=== PATIENT | female | born 1935 | race Caucasian/White ===

== ENCOUNTER 2017-08-22 09:32 | Outpatient (CLI) | END 2017-08-22 09:33 | disposition short-term general hospital (02) | LOC: AMBL 09:32 | PROVIDERS: ATTEND Internal Medicine | DX: S99.911A Unspecified injury of right ankle, initial encounter (principal); R00.1 Bradycardia, unspecified; W01.0XXA Fall on same level from slipping, tripping and stumbling without subsequent striking against object, initial encounter ==

== ENCOUNTER 2017-09-07 12:00 | Outpatient (CLI) | END 2017-09-07 12:01 | disposition home or self-care (01) | LOC: NONPT 12:00 | PROVIDERS: ATTEND Family Medicine | DX: S82.91XA Unspecified fracture of right lower leg, initial encounter for closed fracture (principal); F03.90 Unspecified dementia, unspecified severity, without behavioral disturbance, psychotic disturbance, mood disturbance, and anxiety | CPT/HCPCS: 80048; 85025 ==

== ENCOUNTER 2018-05-11 19:28 | Observation (INO) ==
[2018-05-11 19:41] VITALS: BMI 24.7
[2018-05-11] MEDS ORDERED: ZOFRAN 4 MG/2 ML IVP STA (19:48)
[2018-05-11] MEDS ORDERED: LACTATED RINGERS 1,000 ML IV STA (19:48)
--- NOTE | 2018-05-11 20:42 | DI ---
EXAM: Single view chest. HISTORY: Fever and weakness. COMPARISON: None. FINDINGS: A single portable AP view of the chest. There hemidiaphragm is elevated. LUNGS: The lung volumes are normal. There is no lobar consolidation or effusion. The pulmonary inte rstitium is normal. There are no suspicious nodules. MEDIASTINUM: The heart is enlarged. The pulmonary vasculature is normal. The aorta is tortuous an d calcified. OSSEOUS STRUCTURES: The osseous structures show mild degenerative changes consistent with age. The so ft tissues are unremarkable. IMPRESSION: 1. No acute pulmonary disease. 2. Elevated right hemidiaphragm. Recommend comparison with prior studies. 3. Cardiomegaly.
--- NOTE | 2018-05-11 22:15 | ED.PDOC ---
General ED Provider: Dr. MICHAEL JIMENEZ Chief Complaint: Fever Stated Complaint: Patient is brought by family with fever today and Diarrhea for one week. went to PCP was told to push fluids. Time Seen by Physician: 19:45 Mode of Arrival: Ambulance Information Source: Patient, Family, EMT Primary Care Provider: FABIAN BURKETT Nursing and Triage Documentation Reviewed and Agree: Yes Does patient meet sepsis criteria?: No System Inflammatory Response Syndrome: Not Applicable Sepsis Protocol: For patient's 13 years and over: Temp is 96.8 and below OR 101 and greater Pulse >90 BPM Resp >20/minute Acutely Altered Mental Status Are patient's symptoms suggestive of a new infection, such as: -Pneumonia -Skin, Soft Tissue -Endocarditis -UTI -Bone, Joint Infection -Implantable Device -Acute Abdominal Infection -Wound Infection -Meningitis -Blood Stream Catheter Infection -Unknown GI Complaint Exam - Vomiting/Diarrhea Complaint/Exam Onset/Duration: 1 week Symptoms Are: Still present Episodes of Vomiting over last 24 Hours: 1 (just prior to arrival ) Episodes of Diarrhea Over Last 24 Hours: 5 Initial Severity: Moderate Current Severity: Moderate Character of Vomiting: Reports: Non-bilious Character of Diarrhea: Reports: Watery Aggravating: Reports: Food, Liquids Alleviating: Reports: None Associated Signs and Symptoms: Reports: Dizziness, Light-headedness, Abdominal pain Non-GI Risk Factors: Reports: None Surgical Obstruction Risk Factors: Reports: None Related Surgical History: Reports: None Abdominal Findings: Present: Other (mild Tendeness to palpation.) Differential Diagnoses: Gastritis, Viral Gastroenteritis, Bacterial Gastroenteritis Review of Systems - Review Of Systems Constitutional: Reports: Fever (at home T max 100 ) Eyes: Reports: No symptoms Respiratory: Reports: No symptoms Cardiac: Reports: No symptoms GI: Reports: Abdominal pain (mild ), Nausea, Vomiting (x1 ) : Reports: No symptoms Musculoskeletal: Reports: No symptoms Skin: Reports: No symptoms Neurological: Reports: Anxiety Endocrine: Reports: No symptoms All Other Systems: Reviewed and Negative Past Medical History - Past Medical History Previously Healthy: Yes Endocrine: Reports: None Cardiovascular: Reports: None Respiratory: Reports: None Hematological: Reports: None Gastrointestinal: Reports: None Genitourinary: Reports: None Neuro/Psych: Reports: Dementia Musculoskeletal: Reports: Arthritis, Back Pain Cancer: Reports: None Last Menstrual Period: none Other Pertinent Past Medical History: restless legs - Surgical History General Surgical History: Reports: None - Family History Family History: Reports: Unknown - Social History Smoking Status: Never smoker Hx Substance Use: No Alcohol Screening: None - Immunizations Tetanus Shot up to Date: Yes Physical Exam - Physical Exam Appearance: Ill-appearing Ill-appearing: Moderate Pain Distress: Mild Eyes: TREVOR, EOMI, Conjunctiva clear ENT: Dry mucosa Neck: Supple Respiratory: Airway patent, Breath sounds clear, Breath sounds equal, Respirations nonlabored Cardiovascular: RRR, Pulses normal, No rub, No murmur GI/: Soft, Nontender, No masses, Bowel sounds normal, No Organomegaly Musculoskeletal: Normal strength, ROM intact, No edema, No calf tenderness Skin: Warm, Dry, Normal color Neurological: Sensation intact, Motor intact, Cranial nerves intact, Alert, Oriented Psychiatric: Anxious Interpretation - Radiology Interpretation Radiology Interpretation By: Radiologist Radiology Results: Negative Exam Interpreted: CXR Radiology Interpretation By: Radiologist - [employer] Rate: Normal Rhythm: Sinus Critical Care Note - Critical Care Note Total Time (mins): 35 Course - Course Hematology/Chemistry: 05/12/18 05:00 05/12/18 10:55 Orders, Labs, Meds: Lab Review 05/11/18 05/11/18 05/11/18 19:40 19:40 19:40 WBC 5.37 RBC 4.60 Hgb 12.9 Hct 39.0 MCV 84.8 MCH 28.0 MCHC 33.1 RDW Coeff of [place] 13.0 Plt Count 189 Immature Gran % (Auto) 0.6 Neut % (Auto) 77.8 Lymph % (Auto) 15.1 [place] % (Auto) 5.0 Eos % (Auto) 1.1 Baso % (Auto) 0.4 Immature Gran # (Auto) 0.0 Neut # (Auto) 4.2 Lymph # (Auto) 0.8 [place] # (Auto) 0.3 L Eos # (Auto) 0.1 Baso # (Auto) 0.0 Sodium 136.6 L Potassium 3.96 Chloride 101.7 Carbon Dioxide 27.8 Anion Gap 11.06 BUN 29.1 H Creatinine 1.21 Estimated GFR (MDRD) 43.00 BUN/Creatinine Ratio 24.04 Glucose 113.0 H Lactic Acid Calcium 8.85 Total Bilirubin 0.48 AST 34.5 ALT 17.5 Alkaline Phosphatase 91.1 Total Protein 7.23 Albumin 4.14 Globulin 3.09 Albumin/Globulin Ratio 1.33 Procalcitonin 0.08 Urine Color Urine Clarity Urine pH Ur Specific [place] Urine Protein Urine Glucose (UA) Urine Ketones Urine Blood Urine Nitrite Urine Bilirubin Urine Urobilinogen Ur Leukocyte Esterase Urine Microscopic RBC Urine Microscopic WBC Ur Squamous Epith Cells Urine Bacteria Hyaline Casts Urine Mucus Influ A Molecular Assay Influ B Molecular Assay 05/11/18 05/11/18 05/11/18 19:40 19:40 21:18 WBC RBC Hgb Hct MCV MCH MCHC RDW Coeff of [place] Plt Count Immature Gran % (Auto) Neut % (Auto) Lymph % (Auto) [place] % (Auto) Eos % (Auto) Baso % (Auto) Immature Gran # (Auto) Neut # (Auto) Lymph # (Auto) [place] # (Auto) Eos # (Auto) Baso # (Auto) Sodium Potassium Chloride Carbon Dioxide Anion Gap BUN Creatinine Estimated GFR (MDRD) BUN/Creatinine Ratio Glucose Lactic Acid 1.06 Calcium Total Bilirubin AST ALT Alkaline Phosphatase Total Protein Albumin Globulin Albumin/Globulin Ratio Procalcitonin Urine Color Yellow Urine Clarity Clear Urine pH 6.5 Ur Specific [place] 1.020 Urine Protein Negative Urine Glucose (UA) Negative Urine Ketones Negative Urine Blood Trace-intact Urine Nitrite Negative Urine Bilirubin Negative Urine Urobilinogen 0.2 Ur Leukocyte Esterase 1+ Urine Microscopic RBC 2-5 Urine Microscopic WBC 10-20 Ur Squamous Epith Cells 2-5 Urine Bacteria 1+ Hyaline Casts 2-5 Urine Mucus Trace Influ A Molecular Assay Negative by naat Influ B Molecular Assay Negative by naat Orders Category Date Time Status ED APPLY O2 .ONCE EMERGENCY 05/11/18 19:29 Active ED CIRCULATION ASSISTANT APPLIED .ONCE EMERGENCY 05/11/18 19:29 Active ED IV/MEDIPORT/POWERPORT .ONCE EMERGENCY 05/11/18 19:29 Active ED VITAL SIGNS Q1HR EMERGENCY 05/11/18 19:29 Completed BLOOD CULTURE (ED ONLY) Stat LAB 05/11/18 19:40 Results CBC W/ AUTO DIFF Stat LAB 05/11/18 19:40 Completed COMPREHENSIVE METABOLIC PANEL Stat LAB 05/11/18 19:40 Completed FLU A/B MOLECULAR Stat LAB 05/11/18 19:40 Completed LACTIC ACID Stat LAB 05/11/18 19:40 Completed PROCALCITONIN Stat LAB 05/11/18 19:40 Completed URINALYSIS C & S IF INDICATED Stat LAB 05/11/18 21:18 Completed URINE CULTURE Stat LAB 05/11/18 21:18 Results 0.9 % Sodium Chloride [Saline Flush] MEDS 05/11/18 19:29 Discontinued 1 syr IVF PRN PRN Ondansetron HCl/Pf [Zofran 4 mg/2 ml] MEDS 05/11/18 19:48 Discontinued 4 mg IVP ONCE STA Ringers Lactated Solution [Lactated Ringers] 1,000 ml MEDS 05/11/18 19:48 Discontinued IV BOLUS CHEST, 1V AP ONLY Stat RADS 05/11/18 19:29 Completed Medications Discontinued Medications Generic Name Dose Route Start Last Admin Trade Name Freq PRN Reason Stop Dose Admin Atorvastatin Calcium 10 mg 05/12/18 21:00 Lipitor PO BEDTIME MINNA Baclofen 10 mg 05/12/18 09:00 05/12/18 14:39 Baclofen PO 10 mg TID MINNA Administration Calcium/Vitamin D 1 each 05/12/18 09:00 05/12/18 10:12 Calcium 500 + Vit D 200 Mg Tablet PO Not Given BID MINNA Enoxaparin Sodium 40 mg 05/11/18 23:45 05/12/18 02:25 Lovenox SUBCUT 40 mg DAILY MINNA Administration Enoxaparin Sodium 40 mg 05/12/18 21:00 Lovenox SUBCUT BEDTIME MINNA Gabapentin 300 mg 05/12/18 09:00 05/12/18 14:43 Neurontin PO Not Given TID MINNA Lactated Ringer's 1,000 mls @ 1,000 mls/hr 05/11/18 19:48 05/11/18 19:55 Lactated Ringers IV 05/11/18 20:47 1,000 mls/hr BOLUS STA Administration Sodium Chloride 1,000 mls @ 100 mls/hr 05/11/18 22:30 05/12/18 10:12 Sodium Chloride IV 100 mls/hr .Q10H MINNA Administration Calcium Gluconate 1,000 mg/ 110 mls @ 50 mls/hr 05/12/18 12:03 05/12/18 12:33 Sodium Chloride IV 05/12/18 14:14 50 mls/hr ONCE STA Administration Non-Formulary Medication 1 each 05/12/18 21:00 Memantine Hcl/Donepezil Hcl [Namzaric 28 Mg-10 Mg Capsule] PO BEDTIME MINNA Non-Formulary Medication 240 mg 05/12/18 21:00 Verapamil Hcl [Verapamil Sr] PO BEDTIME MINNA Ondansetron HCl 4 mg 05/11/18 19:48 05/11/18 19:54 Zofran 4 Mg/2 Ml IVP 05/11/18 19:49 4 mg ONCE STA Administration Ondansetron HCl 4 mg 05/11/18 22:16 Zofran 4 Mg/2 Ml IVP Q6H PRN Nausea / Vomiting Oxycodone/Acetaminophen tab 05/11/18 22:20 Percocet 10-325 PO PRN PRN severe pain Oxycodone/Acetaminophen 1 tab 05/12/18 11:21 Percocet 10-325 PO Q6H PRN severe pain Ropinirole HCl 0.25 mg 05/12/18 09:00 05/12/18 14:43 Requip PO 0.25 mg TID MINNA Administration Sodium Chloride 1 syr 05/11/18 19:29 Saline Flush IVF PRN PRN To flush IV Trazodone HCl 50 mg 05/12/18 21:00 Desyrel PO BEDTIME MINNA Vancomycin HCl 125 mg 05/12/18 12:00 05/12/18 18:01 Vancocin PO Not Given Q6HR [facility] Vital Signs: Temp Pulse Resp BP Pulse Ox 05/11/18 21:34 98.2 F 80 18 128/82 96 05/11/18 19:29 97.6 F 88 20 133/63 97 Departure - Departure Time of Disposition: 22:15 Disposition: PLACED OBSERVATION Discharge Problem: Gastroenteritis, Dehydration Condition: Stable Pt referred to PMD for follow-up: No IPMP verified?: No Allergies/Adverse Reactions: Allergies celecoxib [From Celebrex] Allergy (Unverified 08/18/17 12:12) swelling ciprofloxacin [From Cipro] Allergy (Unverified 08/18/17 12:12) severe itching ciprofloxacin HCl [From Cipro] Allergy (Unverified 08/18/17 12:12) severe itching diclofenac Allergy (Unverified 08/18/17 12:12) Upset stomach pregabalin [From Lyrica] Allergy (Unverified 08/18/17 11:56) slurred speach rofecoxib [From Vioxx] Allergy (Unverified 08/18/17 12:12) high blood pressure rosuvastatin calcium [From Crestor] Allergy (Unverified 08/18/17 12:12) bad leg aches tizanidine Allergy (Unverified 08/18/17 12:12) tizanidine HCl [From Zanaflex] Allergy (Unverified 08/18/17 12:12) dry mouth Home Medications: Ambulatory Orders Atorvastatin Calcium 10 mg PO BEDTIME 08/18/17 Baclofen 10 mg PO TID 08/18/17 Oxycodone HCl/Acetaminophen [Percocet 10-325 mg Tablet] 1 each PO PRN PRN Ropinirole HCl 0.25 mg PO TID 08/18/17 Verapamil HCl [Verapamil Sr] 240 mg PO BEDTIME 08/18/17 Memantine HCl/Donepezil HCl [Namzaric 28 mg-10 mg Capsule] 1 each PO BEDTIME 07/28 Trazodone HCl [Desyrel] 50 mg PO BEDTIME 05/11/18 Calcium Carbonate/Vitamin D3 [Calcium 500 + Vit D 200 mg Tablet] 1 each PO BID 30 Days #60 tablet 05/12/18 Gabapentin [Neurontin] 100 mg PO TID 05/12/18 Vancomycin HCl [Vancocin] 125 mg PO Q6HR 10 Days #40 capsule 05/12/18
[2018-05-11] MEDS ORDERED: ZOFRAN 4 MG/2 ML IVP PRN (22:16)
[2018-05-11] MEDS ORDERED: PERCOCET 10-325 PO PRN (22:20)
--- NOTE | 2018-05-11 23:03 | PCM ---
- Chief Complaint Chief Complaint: Dehydration - History of Present Illness History of Present Illness: 83 yo WF resident of [facility], here in [place] with Daughter Luci. PCP Dr. Chan. Patient lives with daughter, 13 years. Daughter moved in to care for mother. Pets at home include 6 dogs rescues and 9 mo great grand duaghter a few times weekly. daughter notes diarrhea x 1 week. using pepto bismol and using OTC anti-diarrheal pills. Went and saw Dr. Chan this past tuesday, 3 days ago and told her about it and they recommended to keep doing the same as everything checked fine. No blood work per daughter as they do blood work every other visit. Checked vitals, checked meds, sent home to continue. She was not that weak. As week progressed more weak. Trying to increase fluids, trying to increase intake. Daughter noted last night more weak. This day she was eating/drking. Got up peeled own apple, ate own food, using restroom on her own, walking with walker. 5pm today, emesis x1. Daughter felt her she felt hot, checked axillary temp 102.8. they thought she was dehydrated, made decision to bring her here. Flu shot given on tuesday through Dr. Chan. Tylenol given at home. Daughter brought her in for evaluation. Last [id number]. No other sick contacts. No blood in stool. today she has had 3x diarrhea. Yesterday 3x diarrhea. She ahs not been on any abx in past 90 days, no different foods. No abdominal pain. No cramping. NO changes in diet.No changes in urination, no freq, no hesitancy, no dysuria, no blood. Intermittent UTI, but nothing recently. UA today not overtly infectious. Flu negative in ER. Vitals stable. Dr. cMkinney in ER called me with ?dehydration. they got to ER about 7pm per daughter. History of RLS, history of HTN, history of chronic back pain, feeling weak and tired. Fluids by EMS. 1 L NS in ER. 2nd liter running now. negative lactate. SIRS negative. Appetite has been good. She has not had anythign for pain, she has not had any falls. We will check for cdiff, she has never had this that she knows. They report prominent odor to the stools. With >3 unformed stools,will check for cdiff. Patient was seen in ED room 3, imaging/labs ordered. Now having abd pain. NO pain with feeding, no pain post eating. - Review of Systems Constitutional: fever, chills, weakness. No: sweats, fatigue, loss of appetite , other Eyes: other (dry). No: blurred vision, double-vision, discharge, itching, pain , redness, photophobia Ears: No: pain, bleeding, drainage, ringing, hearing loss, other Nose: No: bleeding, congestion, discharge, other Throat: No: pain, swelling, voice change, other Mouth: other (dry eyes, dry mouth. ). No: bleeding, pain, swelling Respiratory: No: cough, shortness of air, wheeze, hemoptysis, pain with breathing, other Cardiovascular: No: chest pain, left arm pain, diaphoresis, PND, orthopnea, edema, palpitations, syncope, other Gastrointestinal: abdominal pain, nausea, diarrhea. No: vomiting, melena, hematemesis, hematochezia, dysphagia, constipation Genitourinary: No: dysuria, hematuria, frequency, incontinence, flank pain, vaginal discharge, abnormal bleeding, pelvic pain, other Neurological: headache (mild), weakness. No: other, dizziness, seizure, numbness, speech difficulty, problems with walking, tremor, fainting Musculoskeletal: pain (chronic). No: swelling in joints, other Skin: No: rash, pruritus, lacerations, wounds, bruising, other Immunology: No: hives, itching, frequent infections, difficulty healing, other Hematology: No: easy bruising, easy bleeding, swollen glands, other Endocrine: No: weight changes, cold intolerance, heat intolerance, excessive thirst, excessive hunger, polyuria, other Psychiatric: No: depression, anxiety, sleeplessness, hopelessness, suicidal, hallucinations, other Habits: No: tobacco use, substance use, alcohol use, other - Past Medical History Past Medical History: Chronic back pain, RLS, OA, dementia, fatigue (recently diarrhea). - Past Surgical History Past Surgical History: Cholecystectomy, appendectomy, Partial hysterectomy. Carpal tunnel x 2, surgery on thumb x 1. Eye surgery, cataract. - Allergies Allergies/Adverse Reactions: Allergies Allergy/AdvReac Type Severity Reaction Status Date / Time celecoxib [From Celebrex] Allergy Unverified 08/18/17 12:12 ciprofloxacin [From Cipro] Allergy Unverified 08/18/17 12:12 ciprofloxacin HCl Allergy Unverified 08/18/17 12:12 [From Cipro] diclofenac Allergy Unverified 08/18/17 12:12 pregabalin [From Lyrica] Allergy Unverified 08/18/17 11:56 rofecoxib [From Vioxx] Allergy Unverified 08/18/17 12:12 rosuvastatin calcium Allergy Unverified 08/18/17 12:12 [From Crestor] tizanidine Allergy Unverified 08/18/17 12:12 tizanidine HCl Allergy Unverified 08/18/17 12:12 [From Zanaflex] - Medications Medications: Medications Generic Name Dose Route Start Last Admin Trade Name Freq PRN Reason Stop Dose Admin Atorvastatin Calcium 10 mg 05/12/18 21:00 Lipitor PO BEDTIME MINNA Baclofen 10 mg 05/12/18 09:00 Baclofen PO TID [facility] Gabapentin 300 mg 05/12/18 09:00 Neurontin PO TID [facility] Sodium Chloride 1,000 mls @ 100 mls/hr 05/11/18 22:30 Sodium Chloride IV .Q10H [facility] Non-Formulary Medication 1 each 05/12/18 21:00 Memantine Hcl/Donepezil Hcl [Namzaric 28 Mg-10 Mg Capsule] PO BEDTIME [facility] Non-Formulary Medication 240 mg 05/12/18 21:00 Verapamil Hcl [Verapamil Sr] PO BEDTIME [facility] Ondansetron HCl 4 mg 05/11/18 22:16 Zofran 4 Mg/2 Ml IVP Q6H PRN Nausea / Vomiting Oxycodone/Acetaminophen tab 05/11/18 22:20 Percocet 10-325 PO PRN PRN severe pain Ropinirole HCl 0.25 mg 05/12/18 09:00 Requip PO TID [facility] Sodium Chloride 1 syr 05/11/18 19:29 Saline Flush IVF PRN PRN To flush IV Trazodone HCl 50 mg 05/12/18 21:00 Desyrel PO BEDTIME MINNA - Family History Past Family History: Daughter: Pseudotumor cerebri, OA. Psorias/arthritis Other family history negative per daughter. No cancers. - Social History Past Social History: . Lives with daughter. 14 years. No tobacco. Pets at home dogs. - Vital Signs Temperature: 98.2 F Pulse Rate: 80 Respiratory Rate: 18 Blood Pressure: 128/82 O2 Sat by Pulse Oximetry: 96 - Body Composition Height: 5 ft 2 in Weight: 135 lb Body Mass Index (BMI): 24.7 - Physical Examination HEENT: Constitutional: Appearance-Supine in hospital bed, talking in full sentences. No acute distress, abdominal pain reported. Consistent with stated age. Orientation- Oriented x 3, alert Build and Nutrition-[normal BMI] General- Patient is pleasant and cooperative with the interview and exam. Integumentary: General-No rashes, ulcers or lesions. Palpation- Normal skin moisture/turgor. Skin is warm to touch, appropriate. Capillary refill is normal bilateral Upper and lower extremity. Head/Neck: Head- normocephalic and atraumatic. Neck- without visible/palpable lumps or pulsations. Palpation- No bony tenderness about head/neck along frontal, occipital, temporal, parietal, mastoid, jawline, zygoma, orbit or any other location. NO temporal artery tenderness. No TMJ tenderness. Neck Supple. Thyroid-No thyromegaly, no nodules Eye: Bilaterally PERRLA, EOMI. No discharge. Upper and lower eyelids are normal. Sclera/conjunctiva normal without discharge. Cornea is normal and clear. Lens is normal. Eyeball appears normal. No ciliary flushing, no conjunctival injection. ENMT: Pinna- normal without tenderness or erythema. External auditory canal Left- normal without erythema or discharge, no excessive cerumen. External auditory canal Right-normal without erythema or discharge, no excessive cerumen. TM left- Higgins/pearly, normal light reflex and anatomy TM Right- Higgins/ pearly, normal light reflex and anatomy Hearing Assessment-normal to conversational speech. Nose and sinus- No sinus tenderness along frontal/ maxillary region. External appearance normal and midline. Nares- bilateral quiet airflow, no discharge. Nasal mucosa- No bleeding noted and no ulcerations observed. [place], moist. Turbinates non boggy. Lips- normal color, moist without cracks/lesions Oral Cavity/Palate- hard/soft palate intact without lesions, oral mucosa dry, lips cracked. Oropharynx- no pharyngeal erythema, Uvula midline. No post nasal drip. No exudate. Salivary glands- Non tender to palpation CHEST/LUNG: Inspection- symmetric chest wall no pectus deformity. Normal effort , no distress, no use of accessory muscles. Palpation- nontender sternum, ribline. No abnormal pulsations. Auscultation- Breath sounds normal throughout all lung lomas. Normal tracheal sounds, Normal bronchial sounds overlying sternum, Bronchovessicular sounds normal between scapulae posteriorly, Normal vessicular breath sounds heard throughout periphery. Lungs are clear today. Adventitious sounds- No wheezes, rales, rhonchi. CARDIOVASCULAR: Carotid artery- normal, no bruits or abnormal pulsations. Jugular vein- no pulsations. Palpation/Percussion- Normal PMI, no palpable thrill Auscultation- Regular rate and rhythm. No murmur noted in sitting, supine positions. Extremities- no digital clubbing, cyanosis, edema, increased warmth. ABDOMEN: Inspection- normal and no visible pulsations. Normal contour. Auscultation- Bowel sounds mildly hypoactive but present all quadrants. no abdominal bruits. Palpation/Percussion- soft, generalized tender, no rebound tenderness, no rigidity (guarding), no jar tenderness, no masses. No mcburney tenderness, no rovsing, no mcallister sign. Rectal: Deferred. Peripheral Vascular: Upper extremity Left- Normal temperature with pink nailbeds and no ulcerations. Upper extremity Right- Normal temperature with pink nailbeds and no ulcerations. Lower extremity- Normal temperature with pink nailbeds and no ulcerations. DP pulses 2+ bilaterally. Normal capillary refill. Edema- No edema. Musculoskeletal: Generalized-No generalized swelling or edema of extremities, no digital clubbing or cyanosis, neurovascularly intact all four extremities. Upper extremity- Symmetrical posture. No visible deformity. Normal sensation along medial and lateral upper extremity proximally and distally. NO tenderness overlying shoulder, lateral/medial epicondyle. [employer] 5/5 and strength 5/5 bilateral UE. Elbow palpated, no tenderness overlying olecranon. Normal supination, pronation to active/passive ROM and to resisted rotation. Bicep insertion/tricep insertion appear normal without obvious pathology. Rotator cuff evaluated and intact. Normal wrist ROM bilaterally. Normal hand movement, intrinsic muscles of hands normal. No tenderness to palpation of hands/wrists/ elbows. Lower extremity- Hip: Not tender to palpation, no pain, no swelling, edema or erythema of surrounding tissue, normal strength and tone. Normal appearing hip ROM bilaterally without pain. Knee: Knee ROM normal. No tenderness overlying trochanters, no tenderness about patella, quad tendon, patellar tendon. No tenderness at tibial tuberosity. Ankle: normal ROM not tender to palpation along medial/lateral malleolus. Spine/Ribs- No deformities, masses. tenderness T/Lspine. no known fractures, normal strength, Decreased ROM. Normal stability No tenderness along C/T/L spine. Normal appearing ROM about spine. Neurological: General- Moves all 4 extremities symmetrically. Symmetrical face and body posture. Cranial nerves- individually evaluated II-XII and intact. PERRLA, Normal EOMI, visual/special senses appear intact, Face is symmetrical and normal sensation/movement, normal tongue, normal strength/posture of neck musculature. Reflexes- intact with DTR 2+ patellar, Achilles, bicep, brachial, tricep. Ankle clonus normal with 2 beats. Strength- 5/5 bilateral UE and LE. Neuropsych: Oriented- Person, place, time. (AAOx3), Mood/affect- normal and congruent. Able to articulate well. Speech-Normal speech, normal rate, normal tone, normal use of language, volume and coherence. Thought content- normal with ability to perform basic computations and apply abstract thought/reason. Associations- intact, no SI/HI, no hallucinations, delusions, obsessions. Judgment/insight- Appropriate. Lymphatic: Head/Neck- normal size and non tender to palpation. Axillary- normal size and non tender to palpation. Femoral and Inguinal- normal size and non tender to palpation. - Lab/Tests/Diagnostic Imaging Lab/Tests/Diagnostic Imaging: Laboratory Last Values WBC 5.37 K/ul (4.6-10.2) 05/11/18 19:40 RBC 4.60 10^6/ul (4.20-5.40) 05/11/18 19:40 Hgb 12.9 g/dl (12.0-16.0) 05/11/18 19:40 Hct 39.0 % (37.0-47.0) 05/11/18 19:40 MCV 84.8 fl (81.0-99.0) 05/11/18 19:40 MCH 28.0 pg (27.0-31.0) 05/11/18 19:40 MCHC 33.1 (31.8-35.4) 05/11/18 19:40 RDW Coeff of [place] 13.0 % (11.6-14.8) 05/11/18 19:40 Plt Count 189 10^3/uL (140-440) 05/11/18 19:40 Immature Gran % (Auto) 0.6 % (0.0-5.0) 05/11/18 19:40 Neut % (Auto) 77.8 05/11/18 19:40 Lymph % (Auto) 15.1 (10.0-50.0) 05/11/18 19:40 [place] % (Auto) 5.0 (0-10) 05/11/18 19:40 Eos % (Auto) 1.1 % (0.0-7.0) 05/11/18 19:40 Baso % (Auto) 0.4 % (0.0-3.0) 05/11/18 19:40 Immature Gran # (Auto) 0.0 (0.0-1.0) 05/11/18 19:40 Neut # (Auto) 4.2 K/ul (2.0-6.9) 05/11/18 19:40 Lymph # (Auto) 0.8 K/uL (0.60-3.4) 05/11/18 19:40 [place] # (Auto) 0.3 K/uL (0.4-2.0) L 05/11/18 19:40 Eos # (Auto) 0.1 K/ul (0.0-0.7) 05/11/18 19:40 Baso # (Auto) 0.0 K/uL (0-0.2) 05/11/18 19:40 Sodium 136.6 mmol/L (137-145) L 05/11/18 19:40 Potassium 3.96 mmol/L (3.5-5.1) 05/11/18 19:40 Chloride 101.7 mmol/L (98-107) 05/11/18 19:40 Carbon Dioxide 27.8 mmol/L (22-30.0) 05/11/18 19:40 Anion Gap 11.06 05/11/18 19:40 BUN 29.1 mg/dL (7-17) H 05/11/18 19:40 Creatinine 1.21 mg/dL (0.60-1.30) 05/11/18 19:40 Estimated GFR (MDRD) 43.00 mL/min 05/11/18 19:40 BUN/Creatinine Ratio 24.04 05/11/18 19:40 Glucose 113.0 mg/dL (74-106) H 05/11/18 19:40 Lactic Acid 1.06 mmol/L (0.7-2.1) 05/11/18 19:40 Calcium 8.85 mg/dL (8.4-10.2) 05/11/18 19:40 Total Bilirubin 0.48 mg/dL (0.2-1.3) 05/11/18 19:40 AST 34.5 U/L (14-36) 05/11/18 19:40 ALT 17.5 U/L (0-35) 05/11/18 19:40 Alkaline Phosphatase 91.1 U/L (53-141) 05/11/18 19:40 Total Protein 7.23 g/dL (6.3-8.2) 05/11/18 19:40 Albumin 4.14 g/dL (3.5-5.0) 05/11/18 19:40 Globulin 3.09 05/11/18 19:40 Albumin/Globulin Ratio 1.33 05/11/18 19:40 Procalcitonin 0.08 ng/mL (0.09) 05/11/18 19:40 Urine Color Yellow (YELLOW) 05/11/18 21:18 Urine Clarity Clear (CLEAR) 05/11/18 21:18 Urine pH 6.5 (5-9) 05/11/18 21:18 Ur Specific [place] 1.020 (1.005-1.030) 05/11/18 21:18 Urine Protein Negative (NEGATIVE) 05/11/18 21:18 Urine Glucose (UA) Negative (NEGATIVE) 05/11/18 21: Urine Ketones Negative (NEGATIVE) 05/11/18 21:18 Urine Blood Trace-intact (NEGATIVE) 05/11/18 21:18 Urine Nitrite Negative (NEGATIVE) 05/11/18 21:18 Urine Bilirubin Negative (NEGATIVE) 05/11/18:18 Urine Urobilinogen 0.2 (0.2) 05/11/18 21:18 Ur Leukocyte Esterase 1+ (NEGATIVE) 05/11/18 21:18 Urine Microscopic RBC 2-5 (0-2) 05/11/18 21:18 Urine Microscopic WBC 10-20 (0-2) 05/11/18 21:18 Ur Squamous Epith Cells 2-5 (0-5) 05/11/18 21:18 Urine Bacteria 1+ (NOT PRESENT) 05/11/18 21:18 Hyaline Casts 2-5 (NOT PRESENT) 05/11/18 21:18 Urine Mucus Trace (NOT PRESENT) 05/11/18 21:18 Influ A Molecular Assay Negative by naat (NEGATIVE) 05/11/18 19:40 Influ B Molecular Assay Negative by naat (NEGATIVE) 05/11/18 19:40 CT Abd/pelvis w/ contrast: ordered/pending. Urine culture pending C diff pending CXR: NO acute process, elevated hemidiaphragm. Recommended compare to previous. I do not have previous, will see if xray at . - Assessment (1) Abdominal pain Status: Acute Code(s): R10.9 - UNSPECIFIED ABDOMINAL PAIN SNOMED Code(s): 43133691 (2) RLS (restless legs syndrome) Status: Acute (3) Dehydration Status: Acute Code(s): E86.0 - DEHYDRATION SNOMED Code(s): 59898397 (4) Gastroenteritis Status: Acute Code(s): K52.9 - NONINFECTIVE GASTROENTERITIS AND COLITIS, UNSPECIFIED SNOMED Code(s): 87726316 - Plan Plan: Diarrhea/fever/abdominal pain: Generalized abdominal pain with fever and diarrhea >3 unformed stools per 24 hours. DDX considered includes viral vs bacterial, non infectious gastroenteritis, Colitis (C diff), food borne illness , Diverticulitis and IBS, IBD, constipation with seepage (Discussed quite common ).. Cscopes up to date, cancer of colon less likely. Likely diagnosis is gastroenteritis but length of time seems longer than typical. because these usually run anywhere from 1-5 days depending on severity. Biggest risk factor is dehydration. She has received 1.5 L already. Her vitals look good. She has had some fever. I want to avoid anti-diarrheals at this time until Cdiff has returned. I have ordered ct of abd/pelvis with contrast to evaluate for diverticular process. She has not had any bloody emesis/diarrhea by history. No report of constipation. Mild to moderate cramping, mild to moderate generalized abdominal pain. Poorly described. Tender to palpation, mild hypoactive sounds. No WBC, mild reduced GFR. She has been bolused, I will set maintenance to 100 cc/hour. Flu negative. - Cdiff toxin - CT abd/pelvis w/ contrast - Vitals q shift - IV fliuds 100 ml/hour. - Urine Culture. - director nicu. - PCR stools ordered - Am labs. Monitor electrolytes. SOHAN: Dehydration likely. Fluid hydration. CMP in am. - CMP in am. DVT Prophy: Lovenox 40 subcut as renal function is reasonable. Diet: Normal advance as tolerated. RLS: Home meds. Chronic back Pain: Home meds. Disposition: Check for Cdiff, f/u with CT. If negative cdiff consider imodium okay. PCR stools ordered. Pt seen in ER, history from patient and daughter. Talked with ER team. Admit to obs. Spent 55 minutes with patient during admission.
[2018-05-11] MEDS ORDERED: LOMOTIL PO PRN (23:05)
[2018-05-11] MEDS ORDERED: LOVENOX SUBCUT SCH (23:45)
[2018-05-11] MEDS: SODIUM CHLORIDE 1,000 ML IV SCH (23:50)
--- NOTE | 2018-05-12 03:43 | CT ---
Exam: CT of the abdomen and pelvis with contrast History: Abdominal pain, diarrhea Technique: [address] of the abdomen pelvis following intravenous contrast. Enteric contrast administe red antegrade. FINDINGS: Minor bilateral lung base atelectasis. No significant liver abnormality. The adrenals, barker creas and spleen are unremarkable. The stomach and hiatus are unremarkable.There is no peripancreatic inflammation. Prior cholecystectomy. Kidneys and proximal collecting system are unremarkable. The e nteric contrast has progressed to the colon. Moderate to large right and transverse colonic stool re tention. Bowel loops demonstrate normal caliber. No inflamatory change seen in the mesentery or retro peritoneum. The appendix is not seen. Prior hysterectomy. Normal urinary bladder. Questionable sigmoid colonic thickening without surroun ding inflammation. No acute findings of the skeleton. Prior cement fixation of L1 and L2. Left con vexity lumbar scoliosis with multilevel degenerative change. Impression: 1. Moderate to large right and transverse colonic stool retention. Correlate for symptoms. 2. The bowel pattern is nonobstructive 3. Questionable left and sigmoid colonic thickening. Correlate for colitis. No pericolonic inflamm ation. 4. Colonic diverticulosis without evidence of acute diverticulitis.
--- NOTE | 2018-05-12 07:29 | PCM.PROG ---
Subjective: 83 yo HD 2 diarrhea, abdominal pain, dehydration. She did well overnight with fluids. BM x 1, void x 1 (unmeasured). Reviewed ON tele and normal, vitals ON normal. Talked with ON nurse, she rested comfortably all night with only 1 BM. I checked on patient this am 121 at 7 am and she was resting comfortably, easily awoken and aroused. She noted no pain now, BM x 1, need to BM now. I discussed CT scan showing moderate stool in colon and that she had mild colitis as well but no e/o diverticulitis. Stool was accidently not sent for Cdiff, we will send the one she is having this am. No urinary symptoms, no abd pain now. Vitals are normal stable, lips moist and she feels better/less weak. WBC normal at 7.8, hgb stable 11.3. Sodium dropped mildly from 136.6 to 133.8 and her calcium dropped a little to 8.07. She has no prolonged appearance of QT on tele. I ordered EKG as QT is <1/2 RR. No visual e/o prolonged QT. We we have oscal 500 +D3 200 and I will add 1 BID for her and to have her calcium checked again in [address] showed moderate to large right and transverse colonic stool retention, correlate w/ symptoms, bowel is non obstructive, ?left and sigmoid colon thickening. Colitis discussed, diverticulosis but not diverticulitis. No nausea this am, she is having a BM this am. No other complaints. BM this am, liquid and appears to be seepage. Offered Physical therapy, declined. No new c/o resting comfortably. REVIEW OF SYMPTOMS: (Positives bolded) General: weight loss, RESOLVED fever, chills, night sweats, fatigue, appetite loss Weakness reported. HEENT: blurry vision, eye pain, eye discharge, dry eyes, decreased vision, sore throat tinnitus, bloody nose, hearing loss, sinus pain/pressure, ear pain/ pressure. Respiratory: shortness of breath, cough, hemoptysis, wheezing, pleurisy, Cardiovascular: chest pain, PND, palpitation, edema, orthopnea, syncope, swelling of extremities Gastro: Nausea, vomiting, diarrhea, hematemesis, abdominal pain, constipation Abd pain resolved, vomiting resolved. Genito: hematuria, dysuria, glycosuria, hesitancy, frequency, incontinence [place]: Arthralgia, myalgia, muscle weakness, joint swelling, NSAID use Skin: rash, pruritis, sores, nail changes, skin thickening, change in wart/mole , itching, rash, new lesions, pruritus, nail changes Neuro: Migraine, numbness, ataxia, tremor, vertigo, weakness, memory loss, Irritability, dizziness Endocrine: excessive thirst, polyuria, cold intolerance, heat intolerance, goiter Psychiatric: depression, anxiety, anti-depressants, alcohol abuse, drug abuse, insomnia, change in sleep pattern and mood changes Heme/lymph: easy bruising, bleeding gums, blood clots, swollen glands, lymphedema, Allergic/immune: allergic rhinitis, hay fever, asthma, hives Objective: V Vital Signs - 24 hr 05/11/18 05/11/18 05/11/18 19:29 21:34 23:00 Temperature 97.6 F 98.2 F 99.4 F Pulse Rate 88 80 84 Respiratory 20 18 18 Rate Blood Pressure 133/63 128/82 O2 Sat by Pulse 97 96 95 Oximetry 05/11/18 05/11/18 05/12/18 23:23 23:45 02:00 Temperature 100.7 F H 98.7 F Pulse Rate 86 Respiratory 18 20 Rate Blood Pressure 90/56 L O2 Sat by Pulse 98 Oximetry 05/12/18 05/12/18 05:50 06:54 Temperature 98.0 F 98.2 F Pulse Rate 77 80 Respiratory 16 18 Rate Blood Pressure 114/66 128/82 O2 Sat by Pulse 100 96 Oximetry HEENT: Constitutional: Appearance-Supine in hospital bed, asleep, easily awoken, talking in full sentences. No acute distress, abdominal pain resolved. Consistent with stated age. Orientation- Oriented x 3, alert Build and Nutrition -[normal BMI] General- Patient is pleasant and cooperative with the interview and exam. Integumentary: General-No rashes, ulcers or lesions. Palpation- Normal skin moisture/turgor. Skin is warm to touch, appropriate. Capillary refill is normal bilateral Upper and lower extremity. Eye: Bilaterally PERRLA, EOMI. No discharge. Upper and lower eyelids are normal. Sclera/conjunctiva normal without discharge. Cornea is normal and clear. Lens is normal. Eyeball appears normal. No ciliary flushing, no conjunctival injection. ENMT: Nose and sinus- No sinus tenderness along frontal/maxillary region. External appearance normal and midline. Nares- bilateral quiet airflow, no discharge. Nasal mucosa- No bleeding noted and no ulcerations observed. [place], moist. Turbinates non boggy. Lips- normal color, moist without cracks/lesions Oral Cavity/Palate- hard/soft palate intact without lesions, oral mucosa dry, lips cracked. Oropharynx- no pharyngeal erythema, Uvula midline. No post nasal drip. No exudate. Salivary glands- Non tender to palpation CHEST/LUNG: Inspection- symmetric chest wall no pectus deformity. Normal effort , no distress, no use of accessory muscles. Palpation- nontender sternum, ribline. No abnormal pulsations. Auscultation- Breath sounds normal throughout all lung lomas. Normal tracheal sounds, Normal bronchial sounds overlying sternum, Bronchovessicular sounds normal between scapulae posteriorly, Normal vessicular breath sounds heard throughout periphery. Lungs are clear today. Adventitious sounds- No wheezes, rales, rhonchi. CARDIOVASCULAR: Carotid artery- normal, no bruits or abnormal pulsations. Jugular vein- no pulsations. Palpation/Percussion- Normal PMI, no palpable thrill Auscultation- Regular rate and rhythm. No murmur noted in sitting, supine positions. Extremities- no digital clubbing, cyanosis, edema, increased warmth. ABDOMEN: Inspection- normal and no visible pulsations. Normal contour. Auscultation- Bowel sounds normal all quadrants. no abdominal bruits. Palpation/ Percussion- soft, nontender, no rebound tenderness, no rigidity (guarding), no jar tenderness, no masses. No mcburney tenderness, no rovsing, no mcallister sign. Peripheral Vascular: Upper extremity Left- Normal temperature with pink nailbeds and no ulcerations. Upper extremity Right- Normal temperature with pink nailbeds and no ulcerations. Lower extremity- Normal temperature with pink nailbeds and no ulcerations. DP pulses 2+ bilaterally. Normal capillary refill. Edema- No edema. Neurological: General- Moves all 4 extremities symmetrically. Symmetrical face and body posture. Cranial nerves- individually evaluated II-XII and intact. PERRLA, Normal EOMI, visual/special senses appear intact, Face is symmetrical and normal sensation/movement, normal tongue, normal strength/posture of neck musculature. Reflexes- intact with DTR 2+ patellar, Achilles, bicep, brachial, tricep. Ankle clonus normal with 2 beats. Strength- 5/5 bilateral UE and LE. Neuropsych: Oriented- Person, place, time. (AAOx3), Mood/affect- normal and congruent. Able to articulate well. Speech-Normal speech, normal rate, normal tone, normal use of language, volume and coherence. Thought content- normal with ability to perform basic computations and apply abstract thought/reason. Associations- intact, no SI/HI, no hallucinations, delusions, obsessions. Judgment/insight- Appropriate. Lymphatic: Head/Neck- normal size and non tender to palpation. Axillary- normal size and non tender to palpation. Laboratory Last Values WBC 7.84 K/ul (4.6-10.2) 05/12/18 05:00 RBC 3.90 10^6/ul (4.20-5.40) L 05/12/18 05:00 Hgb 11.3 g/dl (12.0-16.0) L 05/12/18 05:00 Hct 32.8 % (37.0-47.0) L D 05/12/18 05:00 MCV 84.1 fl (81.0-99.0) 05/12/18 05:00 MCH 29.0 pg (27.0-31.0) 05/12/18 05:00 MCHC 34.5 (31.8-35.4) 05/12/18 05:00 RDW Coeff of [place] 13.1 % (11.6-14.8) 05/12/18 05:00 Plt Count 182 10^3/uL (140-440) 05/12/18 05:00 Immature Gran % (Auto) 0.6 % (0.0-5.0) 05/11/18 19:40 Neut % (Auto) 77.8 05/11/18 19:40 Lymph % (Auto) 15.1 (10.0-50.0) 05/11/18 19:40 [place] % (Auto) 5.0 (0-10) 05/11/18 19:40 Eos % (Auto) 1.1 % (0.0-7.0) 05/11/18 19:40 Baso % (Auto) 0.4 % (0.0-3.0) 05/11/18 19:40 Immature Gran # (Auto) 0.0 (0.0-1.0) 05/11/18 19:40 Neut # (Auto) 4.2 K/ul (2.0-6.9) 05/11/18 19:40 Lymph # (Auto) 0.8 K/uL (0.60-3.4) 05/11/18 19:40 [place] # (Auto) 0.3 K/uL (0.4-2.0) L 05/11/18 19:40 Eos # (Auto) 0.1 K/ul (0.0-0.7) 05/11/18 19:40 Baso # (Auto) 0.0 K/uL (0-0.2) 05/11/18 19:40 Neutrophils % (Manual) 65.0 % (42.2-75.2) 05/12/18 05:00 Lymphocytes % (Manual) 23.0 % (10.0-50.0) 05/12/18 05:00 Monocytes % (Manual) 10.0 % (0.0-10.0) 05/12/18 05:00 Eosinophils % (Manual) 2.0 % (0.0-5.0) 05/12/18 05:00 Anisocytosis Not present (NOT PRESENT) 05/12/18 05:00 Sodium 133.8 mmol/L (137-145) L 05/12/18 05:00 Potassium 3.64 mmol/L (3.5-5.1) 05/12/18 05:00 Chloride 103.3 mmol/L (98-107) 05/12/18 05:00 Carbon Dioxide 25.0 mmol/L (22-30.0) 05/12/18 05:00 Anion Gap 9.14 05/12/18 05:00 BUN 22.4 mg/dL (7-17) H 05/12/18 05:00 Creatinine 0.91 mg/dL (0.60-1.30) 05/12/18 05:00 Estimated GFR (MDRD) 59.00 mL/min 05/12/18 05:00 BUN/Creatinine Ratio 24.61 05/12/18 05:00 Glucose 111.1 mg/dL (74-106) H 05/12/18 05:00 Lactic Acid 1.06 mmol/L (0.7-2.1) 05/11/18 19:40 Calcium 8.07 mg/dL (8.4-10.2) L 05/12/18 05:00 Total Bilirubin 0.48 mg/dL (0.2-1.3) 05/11/18 19:40 AST 34.5 U/L (14-36) 05/11/18 19:40 ALT 17.5 U/L (0-35) 05/11/18 19:40 Alkaline Phosphatase 91.1 U/L (53-141) 05/11/18 19:40 Total Protein 7.23 g/dL (6.3-8.2) 05/11/18 19:40 Albumin 4.14 g/dL (3.5-5.0) 05/11/18 19:40 Globulin 3.09 05/11/18 19:40 Albumin/Globulin Ratio 1.33 05/11/18 19:40 Procalcitonin 0.08 ng/mL (0.09) 05/11/18 19:40 Urine Color Yellow (YELLOW) 05/11/18 21:18 Urine Clarity Clear (CLEAR) 05/11/18 21:18 Urine pH 6.5 (5-9) 05/11/18 21:18 Ur Specific [place] 1.020 (1.005-1.030) 05/11/18 21:18 Urine Protein Negative (NEGATIVE) 05/11/18 21:18 Urine Glucose (UA) Negative (NEGATIVE) 05/11/18 21:18 Urine Ketones Negative (NEGATIVE) 05/11/18 21:18 Urine Blood Trace-intact (NEGATIVE) 05/11/18 21:18 Urine Nitrite Negative (NEGATIVE) 05/11/18 21:18 Urine Bilirubin Negative (NEGATIVE) 05/11/18 21:18 Urine Urobilinogen 0.2 (0.2) 05/11/18 21:18 Ur Leukocyte Esterase 1+ (NEGATIVE) 05/11/18 21:18 Urine Microscopic RBC 2-5 (0-2) 05/11/18 21:18 Urine Microscopic WBC 10-20 (0-2) 05/11/18 21:18 Ur Squamous Epith Cells 2-5 (0-5) 05/11/18 21:18 Urine Bacteria 1+ (NOT PRESENT) 05/11/18 21:18 Hyaline Casts 2-5 (NOT PRESENT) 05/11/18 21:18 Urine Mucus Trace (NOT PRESENT) 05/11/18 21:18 Influ A Molecular Assay Negative by naat (NEGATIVE) 05/11/18 19:40 Influ B Molecular Assay Negative by naat (NEGATIVE) 05/11/18 19:40 Calcium has dropped a little to 8.07. CT abdomen/Pelvis with contrast. Moderate to large amount of stool in right and transverse colon. Nonobstructive pattern. ?Left and sigmoid colon thickening. Diverticulosis w/o diverticulitis. (1) Abdominal pain Status: Inactive Code(s): R10.9 - UNSPECIFIED ABDOMINAL PAIN SNOMED Code(s) : 00141967 (2) RLS (restless legs syndrome) Status: Inactive (3) Dehydration Status: Acute Code(s): E86.0 - DEHYDRATION SNOMED Code(s): 15103691 (4) Gastroenteritis Status: Inactive Code(s): K52.9 - NONINFECTIVE GASTROENTERITIS AND COLITIS, UNSPECIFIED SNOMED Code(s): 52297266 Plan: Constipation with diarrhea: CT showed ? colitis, which may be due to constipation. She noted she had this problem historically. We reviwed that this is defined as unsatisfactory defecation/infrequent stooling/difficulty with stool passage. May be present in just under 1/3 of adults. This can be broken down into functional, slow transit or obstructive and secondary constipation can occur due to diet, lifestyle changes, age, medical conditions or meds. We reviewed Amilcar III criteria today. She has not had symptoms long enough to address this. She needs outpatient f/u with PCP to discuss bowel regimen and to f/u wiht this problem. IBS criteria do not seem to be met. R/B/A to meds d/ w patient, SE reviewed. Dietary changes like prunes, fluid, appropriate stooling techniques. Can consider miralax/PEG, dulcolax, water intake, fiber intake etc. to help with regular BM. Consider talking wit PCP about meds like amitiza, linzess, movantik as possible benefit to chronic constipation. Ultimate goal is minimum 2-3 BM per week. Stool now for cdiff. If negative d/ c home with bowel recommendations. Recommended using stool or squatty potty. Consider physical therapy to retrain pelvic muscles, she declined this today. Do not sit for long periods of time on toilet. We also discussed Resolor as possible as she is regularly using opiates. No diverticulitis. Afebrile now. Hydrated again. - Await Cdiff - Await PCR stool - Suspect constipation - Home w/ good bowel regimen when C.diff returns negative. - Continue IV hydration. - EKG this am. Dehydration: Resolved. SOHAN: resolved. Hypocalcemia: Mild, >8.0. We will treat with oral Oscal 500+200D3 1 PO BID. Repeat CMP around noon to make sure sodium is okay. - Noon Calcium returned at 7.96 and Albumin 3.34. Hyponatremia: Very mild. Discussed with patient we will repeat CMP just before lunch. - CMP 11 am. Disposition: Plan to d/c today with f/u with PCP in 1 week, good bowel regimen recommended. Talked with patient this am. She agrees with plan. 35 minutes spent with patient this am. Addendum: 12:00 today. Clostridiodes Difficile +: Patient C.Diff returned + I discussed with them the risks/benefits of treatment with vancomycin. I will cover her with this agent. Hypocalcemia/EKG QTC 534. I added 1000mg calcium gluconate and started her on oscall 500/200. F/U with PCP. REpeat CMP in 5-7 days. Constipation: Discussed with them how to use miralax and to use this regularly to have soft serve frozen yogurt stools. Start with 1/2 cap in 8 oz prune junce and titrate up to effect. May need linzess, amitiza, Symproic, movantik. For now dietary changes, fluids encouraged. She has constipation on right side/transverse and now c diff +. With diarrhea, I will treat. Plan for d/c home 5:30 tonight as she is doing much better.
[2018-05-12] MEDS ORDERED: CALCIUM 500 + VIT D 200 MG TABLET PO SCH (09:00)
[2018-05-12] MEDS: NEURONTIN PO SCH ×2 (09:07→14:43)
[2018-05-12] MEDS: BACLOFEN PO SCH ×2 (09:08→14:39)
[2018-05-12] MEDS: REQUIP PO SCH ×2 (09:08→14:43)
[2018-05-12] MEDS: SODIUM CHLORIDE 1,000 ML IV SCH (10:12)
[2018-05-12] MEDS ORDERED: FIRVANQ PO SCH (11:00)
[2018-05-12] MEDS ORDERED: PERCOCET 10-325 PO PRN (11:21)
[2018-05-12] MEDS ORDERED: CALCIUM GLUCONATE 10% 1,000 MG in SODIUM CHLORIDE 100 ML IV STA (12:03)
[2018-05-12] MEDS: VANCOCIN PO SCH ×2 (12:34→18:01)
[2018-05-12 14:30] VITALS: BP 108/61; TEMP 97.7
--- NOTE | 2018-05-12 17:26 | PCM.DC ---
Final Diagnosis: Constipation (Acute) C. difficile colitis (Acute) Dehydration (Acute) Diarrhea (Acute) Hypocalcemia (Acute) Chronic Opiate use (Chronic) Hyponatremia-Mild (Chronicity unknown). Prolonged QTC (Chronicity unknown) (1) Constipation Status: Acute Code(s): K59.00 - CONSTIPATION, UNSPECIFIED SNOMED Code(s): 80751873 (2) Abdominal pain Status: Acute Code(s): R10.9 - UNSPECIFIED ABDOMINAL PAIN SNOMED Code(s): 69488827 (3) RLS (restless legs syndrome) Status: Chronic (4) Dehydration Status: Resolved Code(s): E86.0 - DEHYDRATION SNOMED Code(s): 13025608 (5) Gastroenteritis Status: Resolved Code(s): K52.9 - NONINFECTIVE GASTROENTERITIS AND COLITIS, UNSPECIFIED SNOMED Code(s): 44804319 (6) Long QT interval Status: Acute Code(s): R94.31 - ABNORMAL ELECTROCARDIOGRAM [ECG] [EKG] SNOMED Code(s): 550247206 (7) C. difficile colitis Status: Acute Code(s): A04.7 - ENTEROCOLITIS DUE TO CLOSTRIDIUM DIFFICILE * DO NOT USE * SNOMED Code(s): 061671761 (8) Diarrhea Status: Acute Code(s): R19.7 - DIARRHEA, UNSPECIFIED SNOMED Code(s): 87519548 (9) Hypocalcemia Status: Acute Code(s): E83.51 - HYPOCALCEMIA SNOMED Code(s): 9304229 Reason for Hospitalization: Diarrhea/Dehydration/Abdominal Pain/Weakness. Prognosis at Discharge: Markedly improved. Diagnosed with C.Diff colitis, hypocalcemia. Left hospital on vancomycin orally and oscal 500/200 BID. Condition at Discharge: Improved. No emesis, diarrhea stable. Abdominal pain resolved. CDiff +. Medications at Discharge: Ambulatory Orders Medication Instructions Recorded Atorvastatin Calcium 10 mg PO BEDTIME 08/18/17 Baclofen 10 mg PO TID 08/18/17 Oxycodone HCl/Acetaminophen 1 each PO PRN PRN 08/18/17 [Percocet 10-325 mg Tablet] Ropinirole HCl 0.25 mg PO TID 08/18/17 Verapamil HCl [Verapamil Sr] 240 mg PO BEDTIME 08/18/17 Memantine HCl/Donepezil HCl 1 each PO BEDTIME 05/11/18 [Namzaric 28 mg-10 mg Capsule] Trazodone HCl [Desyrel] 50 mg PO BEDTIME 05/11/18 Calcium Carbonate/Vitamin D3 1 each PO BID 30 Days #60 tablet 05/12/18 [Calcium 500 + Vit D 200 mg Tablet] Gabapentin [Neurontin] 100 mg PO TID 05/12/18 Vancomycin HCl [Vancocin] 125 mg PO Q6HR 10 Days #40 capsule 05/12/18 Lab/Diagnostics: Laboratory Tests 05/11/18 05/11/18 05/11/18 19:40 19:40 19:40 WBC 5.37 RBC 4.60 Hgb 12.9 Hct 39.0 MCV 84.8 MCH 28.0 MCHC 33.1 RDW Coeff of [place] 13.0 Plt Count 189 Immature Gran % (Auto) 0.6 Neut % (Auto) 77.8 Lymph % (Auto) 15.1 [place] % (Auto) 5.0 Eos % (Auto) 1.1 Baso % (Auto) 0.4 Immature Gran # (Auto) 0.0 Neut # (Auto) 4.2 Lymph # (Auto) 0.8 [place] # (Auto) 0.3 L Eos # (Auto) 0.1 Baso # (Auto) 0.0 Neutrophils % (Manual) Lymphocytes % (Manual) Monocytes % (Manual) Eosinophils % (Manual) Anisocytosis Sodium 136.6 L Potassium 3.96 Chloride 101.7 Carbon Dioxide 27.8 Anion Gap 11.06 BUN 29.1 H Creatinine 1.21 Estimated GFR (MDRD) 43.00 BUN/Creatinine Ratio 24.04 Glucose 113.0 H Lactic Acid Calcium 8.85 Total Bilirubin 0.48 AST 34.5 ALT 17.5 Alkaline Phosphatase 91.1 Total Protein 7.23 Albumin 4.14 Globulin 3.09 Albumin/Globulin Ratio 1.33 Procalcitonin 0.08 Urine Color Urine Clarity Urine pH Ur Specific [place] Urine Protein Urine Glucose (UA) Urine Ketones Urine Blood Urine Nitrite Urine Bilirubin Urine Urobilinogen Ur Leukocyte Esterase Urine Microscopic RBC Urine Microscopic WBC Ur Squamous Epith Cells Urine Bacteria Hyaline Casts Urine Mucus Influ A Molecular Assay Influ B Molecular Assay 05/11/18 05/11/18 05/11/18 19:40 19:40 21:18 WBC RBC Hgb Hct MCV MCH MCHC RDW Coeff of [place] Plt Count Immature Gran % (Auto) Neut % (Auto) Lymph % (Auto) [place] % (Auto) Eos % (Auto) Baso % (Auto) Immature Gran # (Auto) Neut # (Auto) Lymph # (Auto) [place] # (Auto) Eos # (Auto) Baso # (Auto) Neutrophils % (Manual) Lymphocytes % (Manual) Monocytes % (Manual) Eosinophils % (Manual) Anisocytosis Sodium Potassium Chloride Carbon Dioxide Anion Gap BUN Creatinine Estimated GFR (MDRD) BUN/Creatinine Ratio Glucose Lactic Acid 1.06 Calcium Total Bilirubin AST ALT Alkaline Phosphatase Total Protein Albumin Globulin Albumin/Globulin Ratio Procalcitonin Urine Color Yellow Urine Clarity Clear Urine pH 6.5 Ur Specific [place] 1.020 Urine Protein Negative Urine Glucose (UA) Negative Urine Ketones Negative Urine Blood Trace-intact Urine Nitrite Negative Urine Bilirubin Negative Urine Urobilinogen 0.2 Ur Leukocyte Esterase 1+ Urine Microscopic RBC 2-5 Urine Microscopic WBC 10-20 Ur Squamous Epith Cells 2-5 Urine Bacteria 1+ Hyaline Casts 2-5 Urine Mucus Trace Influ A Molecular Assay Negative by naat Influ B Molecular Assay Negative by naat 05/12/18 05/12/18 05/12/18 05:00 05:00 10:55 WBC 7.84 RBC 3.90 L Hgb 11.3 L Hct 32.8 L D MCV 84.1 MCH 29.0 MCHC 34.5 RDW Coeff of [place] 13.1 Plt Count 182 Immature Gran % (Auto) Neut % (Auto) Lymph % (Auto) [place] % (Auto) Eos % (Auto) Baso % (Auto) Immature Gran # (Auto) Neut # (Auto) Lymph # (Auto) [place] # (Auto) Eos # (Auto) Baso # (Auto) Neutrophils % (Manual) 65.0 Lymphocytes % (Manual) 23.0 Monocytes % (Manual) 10.0 Eosinophils % (Manual) 2.0 Anisocytosis Not present Sodium 133.8 L 134.1 L Potassium 3.64 3.75 Chloride 103.3 102.3 Carbon Dioxide 25.0 26.3 Anion Gap 9.14 9.25 BUN 22.4 H 20.8 H Creatinine 0.91 0.81 Estimated GFR (MDRD) 59.00 68.00 BUN/Creatinine Ratio 24.61 25.67 Glucose 111.1 H 99.8 Lactic Acid Calcium 8.07 L 7.96 L Total Bilirubin 0.50 AST 32.9 ALT 15.7 Alkaline Phosphatase 64.1 D Total Protein 6.03 L Albumin 3.34 L Globulin 2.69 Albumin/Globulin Ratio 1.24 Procalcitonin Urine Color Urine Clarity Urine pH Ur Specific [place] Urine Protein Urine Glucose (UA) Urine Ketones Urine Blood Urine Nitrite Urine Bilirubin Urine Urobilinogen Ur Leukocyte Esterase Urine Microscopic RBC Urine Microscopic WBC Ur Squamous Epith Cells Urine Bacteria Hyaline Casts Urine Mucus Influ A Molecular Assay Influ B Molecular Assay CT abd pelvis with contrast: Moderate to large right and transverse colonic stool retention. Correlate for symptoms. Bowel pattern non obstructive. Questionable left and sigmoid colonic thickening correlate for colitis,no pericolonic inflammation. Colonic diverticulosis w/o e/o diverticulitis. C. Diff: + Urine culture too young to read, pending. EKG: Vent rate 84, KS interval 160, QRS duration 80ms, QT 452, QTC 34. PRT 24, - 13, -5. NSR, NL axis, Numerous PVC. Else no acute ST/T changes. Education Provided to Patient and Family: 1. Take Vancomycin orally 4 times daily x 10 days. REviewed Cdiff. Reviewed hand washing with soap/water and not with ETOH. 2. Take calcium supplement twice daily (you received 1000mg calcium gluconate in hospital prior to discharge) (QTC on EKG was 534. NSR, NL axis occasional and consecutive PVC) 3. Bowel regimen for constipation: Seen on CT scan (MODERATE TO LARGE RIGHT AND TRANSVERSE COLONIC STOOL, non obstructive) - Miralax 1/2 cap in 8 oz prune juice daily x 1 week. Titrate up or down to allow for soft serve frozen yogurt stool 1-2x daily. 4. Chronic opiate use, follow up with appropriate provider. 5. Please see Dr. Chan in next 5 days. 6. CMP in 5-7 days. 7. F/U in ER or return if symptoms worsening. Advance diet as tolerated. Follow-ups: 1. DR. Chan in 5 days 2. CMP in 5 days 3. No need to test of cure c. diff if diarrhea resolved. Disposition: HOME SELF-CARE Hospital Course: 83 yo WF resident of [facility], here in [place] with Daughter Luci. PCP Dr. Chan. Patient lives with daughter, 13 years. Daughter moved in to care for mother. Daughter noted diarrhea x 1 week. using pepto bismol and using OTC anti-diarrheal pills. Went and saw Dr. Chan this past tuesday05/08/18. Checked vitals, checked meds, sent home to continue. She was not that weak then. As week progressed more weak. Trying to increase fluids, trying to increase intake. Daughter noted 05/10/18 more weak. 5pm 05/11/18 emesis x1 non bloody, non bilious. Daughter felt her she felt hot, checked axillary temp 102.8. they thought she was dehydrated, made decision to bring her here. Flu shot given on tuesday through Dr. Chan. Tylenol given at home. Daughter brought her in for evaluation. Last [id number]. No other sick contacts. No blood in stool. 05/10/18 and 05/11/18 > 3x diarrhea in 24 hours period. Risks of Cdiff discussed with family. She has not been on any abx in past 90 days, no different foods. Initially reported no abdominal pain but noted generalized, non surgical abdominal pain. + cramping (originally said no) . NO changes in diet.No changes in urination, no freq, no hesitancy, no dysuria , no blood. Intermittent UTI, but nothing recently. UA today not overtly infectious, culture ordered (PENDING AT D/C). Flu negative in ER. Vitals stable. Dr. Mckinney in ER called me with ?dehydration. History of RLS, history of HTN, history of chronic back pain, chronic opiate use, feeling weak and tired. Constipation considered, C. Diff considered, gastroenteritis considered. She received Fluids by EMS. ~2 L NS in ER. Negative lactate, negative SIRS. Appetite has been good. No falls. We admitted her to observation room 121 at [facility]. We ordered labs for am, checked cdiff , and with pain and possibility of diverticular process, I checked CT abd/ pelvis with contrast. Patient was admitted to obs, fluid hydrated over night, no abx given, CT w/ contrasted abd/pelvis ordered and returned prominent right/transverse colonic stool, no diverticular process. Lactate was negative, procalc negative, mild hyponatremia, no elevated WBC (cdiff normally high). Labs were checked this am and her hyponatremia was mildly worse. 1 stool overnight, another in hospital today 05/12/18. void x 1 (unmeasured). Reviewed tele and normal, vitals overnight normal. Talked with ON nurse, she rested comfortably all night with only 1 BM. I checked on patient this am 121 at 7 am and she was resting comfortably, easily awoken and aroused. She noted no pain now, BM x 1, need to BM again. Still No urinary symptoms, no abd pain 05/12/18. Vitals were normal stable, lips moist and she felt better/less weak. WBC normal at 7.8, hgb stable 11.3. Sodium dropped mildly from 136.6 to 133.8 and her calcium dropped a little to 8.07. Repeated later in the day around 12 to be 7.96. I ordered EKG and QTC was 534, prolonged for female (normally >480 is considered prolonged). With her corrected calcium at 8.49 (Calcium 7.96, albumin 3.34), this was borderline. With the prolonged qtc I added calcium gluconate 1 gram IV over 2 hours. I also add ed oscal 500 +D3 200 BID. I would recommend that she get repeat CMP in 5-7 days to look at calcium. Diet changes to increase protein to be considered. Chronic opiate use with constipation, consider agents like linzess, amitiza, movantic, Symproic. Diet/lifestyle changes d/w patient and daughter. No nausea this am, she is having a BM this am. No other complaints. BM this am, liquid and appears to be seepage. Offered Physical therapy, declined. No new c/o resting comfortably. Stool returned + for cdiff. I started her on vanco 125 po QID x 10 days. Day of D/C Physical exam. HEENT: Constitutional: Appearance-Supine in hospital bed, asleep, easily awoken, talking in full sentences. No acute distress, abdominal pain resolved. Consistent with stated age. Orientation- Oriented x 3, alert Build and Nutrition -[normal BMI] General- Patient is pleasant and cooperative with the interview and exam. Integumentary: General-No rashes, ulcers or lesions. Palpation- Normal skin moisture/turgor. Skin is warm to touch, appropriate. Capillary refill is normal bilateral Upper and lower extremity. Eye: Bilaterally PERRLA, EOMI. No discharge. Upper and lower eyelids are normal. Sclera/conjunctiva normal without discharge. Cornea is normal and clear. Lens is normal. Eyeball appears normal. No ciliary flushing, no conjunctival injection. ENMT: Nose and sinus- No sinus tenderness along frontal/maxillary region. External appearance normal and midline. Nares- bilateral quiet airflow, no discharge. Nasal mucosa- No bleeding noted and no ulcerations observed. [place], moist. Turbinates non boggy. Lips- normal color, moist without cracks/lesions Oral Cavity/Palate- hard/soft palate intact without lesions, oral mucosa dry, lips cracked. Oropharynx- no pharyngeal erythema, Uvula midline. No post nasal drip. No exudate. Salivary glands- Non tender to palpation CHEST/LUNG: Inspection- symmetric chest wall no pectus deformity. Normal effort , no distress, no use of accessory muscles. Palpation- nontender sternum, ribline. No abnormal pulsations. Auscultation- Breath sounds normal throughout all lung lomas. Normal tracheal sounds, Normal bronchial sounds overlying sternum, Bronchovessicular sounds normal between scapulae posteriorly, Normal vessicular breath sounds heard throughout periphery. Lungs are clear today. Adventitious sounds- No wheezes, rales, rhonchi. CARDIOVASCULAR: Carotid artery- normal, no bruits or abnormal pulsations. Jugular vein- no pulsations. Palpation/Percussion- Normal PMI, no palpable thrill Auscultation- Regular rate and rhythm. No murmur noted in sitting, supine positions. Extremities- no digital clubbing, cyanosis, edema, increased warmth. ABDOMEN: Inspection- normal and no visible pulsations. Normal contour. Auscultation- Bowel sounds normal all quadrants. no abdominal bruits. Palpation/ Percussion- soft, nontender, no rebound tenderness, no rigidity (guarding), no jar tenderness, no masses. No mcburney tenderness, no rovsing, no mcallister sign. Peripheral Vascular: Upper extremity Left- Normal temperature with pink nailbeds and no ulcerations. Upper extremity Right- Normal temperature with pink nailbeds and no ulcerations. Lower extremity- Normal temperature with pink nailbeds and no ulcerations. DP pulses 2+ bilaterally. Normal capillary refill. Edema- No edema. Neurological: General- Moves all 4 extremities symmetrically. Symmetrical face and body posture. Cranial nerves- individually evaluated II-XII and intact. PERRLA, Normal EOMI, visual/special senses appear intact, Face is symmetrical and normal sensation/movement, normal tongue, normal strength/posture of neck musculature. Reflexes- intact with DTR 2+ patellar, Achilles, bicep, brachial, tricep. Ankle clonus normal with 2 beats. Strength- 5/5 bilateral UE and LE. Neuropsych: Oriented- Person, place, time. (AAOx3), Mood/affect- normal and congruent. Able to articulate well. Speech-Normal speech, normal rate, normal tone, normal use of language, volume and coherence. Thought content- normal with ability to perform basic computations and apply abstract thought/reason. Associations- intact, no SI/HI, no hallucinations, delusions, obsessions. Judgment/insight- Appropriate. Lymphatic: Head/Neck- normal size and non tender to palpation. Axillary- normal size and non tender to palpation. Plan: 1. D/C Home 2. Vanco 125 PO QID x 10 days #40 3. 1 Gram calcium gluconate in ER before d/c over 2 hours. 4. [place] 500/Vit D 200 1 po BID 5. Repeat CMP in 5-7 days. 6. Up ad ruben 7. Diet as tolerated, BRAT diet, advance. Consider dairy avoidance. 8. F/U with PCP in 5-7 days 9. CMP in 5-7 days 10. Return if worsening . >35 minutes spent on discharge today.
[2018-05-12] MEDS ORDERED: DESYREL PO SCH (21:00)
[2018-05-12] MEDS ORDERED: VERAPAMIL HCL 240 MG PO SCH (21:00)
[2018-05-12] MEDS ORDERED: LOVENOX SUBCUT SCH (21:00)
[2018-05-12] MEDS ORDERED: LIPITOR PO SCH (21:00)
[2018-05-12] MEDS ORDERED: NON-FORMULARY MEDICATION (Memantine Hcl/Donepezil Hcl [Namzaric 28 Mg-10 Mg Capsule] 1 EAC PO SCH (21:00)
== END 2018-05-12 18:00 | disposition home or self-care (01) ==
LOC: ED 19:28 → MEDSURG B 21:50
PROVIDERS: ADMIT Family Medicine; ATTEND Family Medicine
DX: R42 Dizziness and giddiness (principal); R10.9 Unspecified abdominal pain; K52.9 Noninfective gastroenteritis and colitis, unspecified; E86.0 Dehydration; R19.7 Diarrhea, unspecified; K59.00 Constipation, unspecified; R94.31 Abnormal electrocardiogram [ECG] [EKG]; A04.72 Enterocolitis due to Clostridium difficile, not specified as recurrent; E83.51 Hypocalcemia
CPT/HCPCS: 36415; 80048; 80053; 81001; 83605; 84145; 85007; 85025; 87040; 87086; 87186; 87493; 87502; 93005; 93010; 96361; 96372; 96374; 96375; 99284; 99285

== ENCOUNTER 2018-05-16 09:19 | Emergency (ER) ==
[2018-05-16 09:27] VITALS: BP 112/68; TEMP 97.7; BMI 27.8
--- NOTE | 2018-05-16 09:42 | ED.PDOC ---
General ED Provider: Dr. LIBBY HAETH Chief Complaint: Urinary Problem Stated Complaint: Has a UTI. Sent here from PCP office for evaluation and tx. Daughter states she was told mother needs IV antibiotics. Further hx revealed her mother was in ER for diarrhea and ultimately dx with dehydration. Daughter states urine was not collected MS-Clean catch or by uni cath/. Hospitalized, re hydrated and placed on po Vancomycin for tx of Cdif then discharged to home following evening. Was called by pcp office yesterday and advised she had a UTI that needed to be tx by IV antibiotics as they had been contacted and advised urine pos culture with no sensitivity to oral antibiotics. Currently denies urinary burning, urgency, frequency. Denies fever, chills or night sweats and states she feels well. Time Seen by Physician: 09:40 Mode of Arrival: Walk-In Information Source: Family Exam Limitations: No limitations Nursing and Triage Documentation Reviewed and Agree: Yes Does patient meet sepsis criteria?: No System Inflammatory Response Syndrome: Not Applicable Sepsis Protocol: For patient's 13 years and over: Temp is 96.8 and below OR 101 and greater Pulse >90 BPM Resp >20/minute Acutely Altered Mental Status Are patient's symptoms suggestive of a new infection, such as: -Pneumonia -Skin, Soft Tissue -Endocarditis -UTI -Bone, Joint Infection -Implantable Device -Acute Abdominal Infection -Wound Infection -Meningitis -Blood Stream Catheter Infection -Unknown Complaint Exam - UTI Female Complaint/Exam Patient Complains of: Reports: Painful urination (Denies ) Symptoms Are: Resolved (Denies having symptoms of UTI) Initial Severity: Mild Current Severity: None Location of Pain: Reports: None Associated Signs and Symptoms: Denies: Fever, Chills, Flank pain, Dyspareunia, Vaginal discharge Related Surgical History: Reports: None CVA Tenderness: No Suprapubic Tenderness: No Differential Diagnoses: Other (UTI by uring culture fingings-) Review of Systems - Review Of Systems Constitutional: Reports: No symptoms Eyes: Reports: No symptoms Ears, Nose, Mouth, Throat: Reports: No symptoms Respiratory: Reports: No symptoms Cardiac: Reports: No symptoms GI: Reports: No symptoms : Reports: No symptoms Musculoskeletal: Reports: No symptoms Skin: Reports: No symptoms Neurological: Reports: Cognitive dysfunction All Other Systems: Reviewed and Negative Past Medical History - Past Medical History Previously Healthy: Yes Endocrine: Reports: None Cardiovascular: Reports: None Respiratory: Reports: None Hematological: Reports: None Gastrointestinal: Reports: Other (C dif) Genitourinary: Reports: None Neuro/Psych: Reports: Dementia Musculoskeletal: Reports: Arthritis, Back Pain Cancer: Reports: None Last Menstrual Period: na Other Pertinent Past Medical History: restless legs - Surgical History General Surgical History: Reports: None - Family History Family History: Reports: Unknown - Social History Smoking Status: Never smoker Hx Substance Use: No Alcohol Screening: None - Immunizations Tetanus Shot up to Date: Yes Physical Exam - Physical Exam Appearance: Well-appearing, Ill-appearing, No pain distress, Well-nourished Ill-appearing: None Pain Distress: None Eyes: TREVOR, EOMI, Conjunctiva clear ENT: Ears normal, Nose normal, Oropharynx normal Neck: Supple Respiratory: Airway patent, Breath sounds clear, Breath sounds equal, Respirations nonlabored Cardiovascular: RRR, Pulses normal, No rub, No murmur GI/: Soft, Nontender, No masses, Bowel sounds normal, No Organomegaly Musculoskeletal: Normal strength, ROM intact, No edema, No calf tenderness Skin: Warm, Dry, Normal color Neurological: Sensation intact, Motor intact, Reflexes intact, Cranial nerves intact, Alert, Oriented Psychiatric: Affect appropriate, Mood appropriate Critical Care Note - Critical Care Note Total Time (mins): 0 Course - Course Orders, Labs, Meds: Lab Review 05/16/18 10:10 Urine Color Yellow Urine Clarity Clear Urine pH 7.0 Ur Specific [place] 1.015 Urine Protein Negative Urine Glucose (UA) Negative Urine Ketones Negative Urine Blood 1+ Urine Nitrite Negative Urine Bilirubin Negative Urine Urobilinogen 0.2 Ur Leukocyte Esterase Negative Urine Microscopic RBC 0-2 Ur Squamous Epith Cells Not present Orders Category Date Time Status UA [URINALYSIS C & S IF INDICATED] Stat LAB 05/16/18 10:10 Completed Vital Signs: Temp Pulse Resp BP Pulse Ox 05/16/18 09:20 97.7 F 67 16 112/68 97 Departure - Departure Time of Disposition: 11:05 Disposition: HOME SELF-CARE Discharge Problem: Positive urine culture, Hx of Clostridium difficile infection Instructions: C Diff (Clostridium Difficile) Infection (ED), Urinary Tract Infection in Older Adults (ED) Condition: Good Pt referred to PMD for follow-up: Yes (1-2 weeks) IPMP verified?: No Additional Instructions: Stay well hydrated Explained results of UA today-WNL NO Need for IV or Oral antibiotics based on clinical exam and lab Allergies/Adverse Reactions: Allergies celecoxib [From Celebrex] Allergy (Unverified 08/18/17 12:12) swelling ciprofloxacin [From Cipro] Allergy (Unverified 08/18/17 12:12) severe itching ciprofloxacin HCl [From Cipro] Allergy (Unverified 08/18/17 12:12) severe itching diclofenac Allergy (Unverified 08/18/17 12:12) Upset stomach pregabalin [From Lyrica] Allergy (Unverified 08/18/17 11:56) slurred speach rofecoxib [From Vioxx] Allergy (Unverified 08/18/17 12:12) high blood pressure rosuvastatin calcium [From Crestor] Allergy (Unverified 08/18/17 12:12) bad leg aches tizanidine Allergy (Unverified 08/18/17 12:12) tizanidine HCl [From Zanaflex] Allergy (Unverified 08/18/17 12:12) dry mouth trazodone Adverse Reaction (Verified 05/16/18 09:30) zolpidem [From Ambien] Adverse Reaction (Verified 05/16/18 09:30) Home Medications: Ambulatory Orders Atorvastatin Calcium 40 mg PO BEDTIME 08/18/17 Baclofen 10 mg PO TID 08/18/17 Oxycodone HCl/Acetaminophen [Percocet 10-325 mg Tablet] 1 each PO PRN PRN Ropinirole HCl 0.25 mg PO TID 08/18/17 Verapamil HCl [Verapamil Sr] 240 mg PO BEDTIME 08/18/17 Memantine HCl/Donepezil HCl [Namzaric 28 mg-10 mg Capsule] 1 each PO BEDTIME 07/28 Calcium Carbonate/Vitamin D3 [Calcium 500 + Vit D 200 mg Tablet] 1 each PO BID 30 Days #60 tablet 05/12/18 Gabapentin [Neurontin] 100 mg PO TID 05/12/18 Vancomycin HCl [Vancocin] 125 mg PO Q6HR 10 Days #40 capsule 05/12/18 Aspirin [Aspir-Low] 81 mg PO DAILY 05/16/18 Disposition Discussed With: Patient, Family ED Physician Progress Note ED Physician Progress Note: [] 05/16/18 10:17 UA form 05/11/2018 reviewed pos E Coli pos Pseudomonas aerug
== END 2018-05-16 11:10 | disposition home or self-care (01) ==
LOC: ED 09:19
DX: N39.0 Urinary tract infection, site not specified (principal)
CPT/HCPCS: 81001; 99282

== ENCOUNTER 2018-07-20 12:31 | Emergency (ER) ==
[2018-07-20 12:43] VITALS: BP 110/72; TEMP 98.4; BMI 27.4
[2018-07-20] MEDS ORDERED: DUONEB NEB STA (13:43)
[2018-07-20] MEDS ORDERED: DECADRON 4 MG/ML SDV IM STA (14:07)
--- NOTE | 2018-07-20 14:10 | CT ---
EXAM: CT of the chest without contrast History: Cough. Comparison: Chest radiograph 05/11/2018 Technique: Multiplanar CT images through the chest were obtained without the administration of IV co ntrast Findings: Heart is borderline enlarged. Coronary calcifications. No pericardial effusion. No thor acic aortic aneurysm. No pathologically enlarged thoracic lymph nodes. Calcified granulomas seen wi thin the thorax. No consolidation. No pleural fluid and no pneumothorax. No suspicious lung masses or lung nodules. Within the visualized upper abdomen, status post cholecystectomy. No acute osseous abnormalities. K yphoplasties seen at L1 and L2. Scoliosis and degenerative changes of the spine. Impression: 1. No acute intrathoracic process. 2. Borderline cardiomegaly and coronary artery disease. 3. Old granulomatous disease
--- NOTE | 2018-07-20 14:27 | ED.PDOC ---
General ED Provider: Dr. MIREYA CHUNG Chief Complaint: Respiratory Complaint Stated Complaint: flu like symptoms Time Seen by Physician: 12:40 (exposed to a child with RSV ) Mode of Arrival: Walk-In (1240) Information Source: Patient Exam Limitations: No limitations Nursing and Triage Documentation Reviewed and Agree: Yes Does patient meet sepsis criteria?: No System Inflammatory Response Syndrome: Not Applicable Sepsis Protocol: For patient's 13 years and over: Temp is 96.8 and below OR 101 and greater Pulse >90 BPM Resp >20/minute Acutely Altered Mental Status Are patient's symptoms suggestive of a new infection, such as: -Pneumonia -Skin, Soft Tissue -Endocarditis -UTI -Bone, Joint Infection -Implantable Device -Acute Abdominal Infection -Wound Infection -Meningitis -Blood Stream Catheter Infection -Unknown Respiratory Complaint Exam - Respiratory Complaint/Exam Onset/Duration: 1 day Symptoms Are: Still present Timing: Intermittent Initial Severity: Mild Current Severity: Mild Location: Nose, Throat, Chest Character: Reports: Non-productive cough, Dry cough Aggravating: Reports: URI Associated Signs and Symptoms: Reports: Wheezing, URI, Nasal congestion, Sore throat. Denies: Rapid breathing, Dyspnea, Fever, Chills, Chest pain, Pleuritic chest pain, Hemoptysis, Dizziness, Calf pain, Calf swelling, Edema, Hoarseness, Sinus discomfort, Vomiting, Weight loss, Decreased oral intake, Increased thirst , Increased appetite, Increased urination History of Healthcare-Acquired Pneumonia: No Related Surgical History: Reports: None Pulmonary Embolism Risk Factors: None Cardiac Risk Factors: Reports: None Pseudomonas Risk Factors: Reports: None Tuberculosis Risk Factors: Reports: None Home Oxygen Use: No Recent Stress Test: No Recent Echo/LV Function: No Current Asthma Medication Use: No Respiratory Distress: None Inadequate Respiratory Effort: No Dysphagia Present: No Stridor Present: No JVD Present: No Accessory Muscle Use: No Retractions: Not Present Diminished Breath Sounds: No Sinus Tenderness: None Grunting Respirations: No Kussmaul Respirations: No Differential Diagnoses: Asthma, COPD Exacerbation, Pneumonia, Bronchitis, URI, Influenza Review of Systems - Review Of Systems Constitutional: Reports: Malaise Eyes: Reports: No symptoms Ears, Nose, Mouth, Throat: Reports: No symptoms Respiratory: Reports: Cough Cardiac: Reports: No symptoms GI: Reports: No symptoms : Reports: No symptoms Musculoskeletal: Reports: No symptoms Skin: Reports: No symptoms Neurological: Reports: No symptoms Endocrine: Reports: No symptoms Hematologic/Lymphatic: Reports: No symptoms All Other Systems: Reviewed and Negative Past Medical History - Past Medical History Previously Healthy: Yes Endocrine: Reports: None Cardiovascular: Reports: None Respiratory: Reports: None Hematological: Reports: None Gastrointestinal: Reports: Other (C dif) Genitourinary: Reports: None Neuro/Psych: Reports: Dementia Musculoskeletal: Reports: Arthritis, Back Pain Cancer: Reports: None Last Menstrual Period: n/a Other Pertinent Past Medical History: restless legs - Surgical History General Surgical History: Reports: None - Family History Family History: Reports: Unknown - Social History Smoking Status: Never smoker Hx Substance Use: No Alcohol Screening: None Physical Exam - Physical Exam Appearance: Well-appearing, No pain distress, Well-nourished Eyes: TREVOR, EOMI, Conjunctiva clear ENT: Ears normal, Nose normal, Oropharynx normal Respiratory: Airway patent, Breath sounds clear, Breath sounds equal, Respirations nonlabored, Rhonchi Cardiovascular: RRR, Pulses normal, No rub, No murmur GI/: Soft, Nontender, No masses, Bowel sounds normal, No Organomegaly Musculoskeletal: Normal strength, ROM intact, No edema, No calf tenderness Skin: Warm, Dry, Normal color Neurological: Sensation intact, Motor intact, Reflexes intact, Cranial nerves intact, Alert, Oriented Psychiatric: Affect appropriate, Mood appropriate Interpretation - Radiology Interpretation Radiology Interpretation By: Radiologist Radiology Results: No acute changes Re-Evaluation - Re-Evaluation Time of Re-Evaluation: 14:30 Status: Improved Vital Signs Stable: Yes Pain Level: 0 Appearance: NAD Lungs: Clear Skin: Warm and Dry Neuro: Alert and Oriented X3 CV: RRR Critical Care Note - Critical Care Note Total Time (mins): 0 Course - Course Hematology/Chemistry: 07/20/18 13:30 07/20/18 13:30 Orders, Labs, Meds: Lab Review 07/20/18 07/20/18 07/20/18 13:30 13:30 13:36 WBC 4.80 RBC 4.42 Hgb 12.3 Hct 37.4 MCV 84.6 MCH 27.8 MCHC 32.9 RDW Coeff of [place] 14.0 Plt Count 154 Immature Gran % (Auto) 0.2 Neut % (Auto) 69.2 Lymph % (Auto) 21.0 Peach % (Auto) 6.3 Eos % (Auto) 2.5 Baso % (Auto) 0.8 Immature Gran # (Auto) 0.0 Neut # (Auto) 3.3 Lymph # (Auto) 1.0 Peach # (Auto) 0.3 L Eos # (Auto) 0.1 Baso # (Auto) 0.0 Sodium 136.8 Potassium 3.88 Chloride 100.6 Carbon Dioxide 32.5 H Anion Gap 7.58 BUN 18.5 H Creatinine 0.92 Estimated GFR (MDRD) 58.00 BUN/Creatinine Ratio 20.10 Glucose 111.4 H Calcium 9.28 Total Bilirubin 0.41 AST 25.0 ALT 16.1 Alkaline Phosphatase 64.0 Total Protein 7.06 Albumin 4.11 Globulin 2.95 Albumin/Globulin Ratio 1.39 Influ A Molecular Assay Negative by naat Influ B Molecular Assay Negative by naat RSV Antigen 07/20/18 13:36 WBC RBC Hgb Hct MCV MCH MCHC RDW Coeff of [place] Plt Count Immature Gran % (Auto) Neut % (Auto) Lymph % (Auto) Peach % (Auto) Eos % (Auto) Baso % (Auto) Immature Gran # (Auto) Neut # (Auto) Lymph # (Auto) Peach # (Auto) Eos # (Auto) Baso # (Auto) Sodium Potassium Chloride Carbon Dioxide Anion Gap BUN Creatinine Estimated GFR (MDRD) BUN/Creatinine Ratio Glucose Calcium Total Bilirubin AST ALT Alkaline Phosphatase Total Protein Albumin Globulin Albumin/Globulin Ratio Influ A Molecular Assay Influ B Molecular Assay RSV Antigen Positive by naat H Orders Category Date Time Status ABG DRAW REQUEST Stat CARDIO 07/20/18 13:43 Ordered EKG-(ED ONLY) Stat CARDIO 07/20/18 13:44 Ordered NEBULIZER TREATMENT Stat CARDIO 07/20/18 13:43 Ordered ABG Stat LAB 07/20/18 13:43 Ordered CBC W/ AUTO DIFF Stat LAB 07/20/18 13:30 Completed COMPREHENSIVE METABOLIC PANEL Stat LAB 07/20/18 13:30 Completed FLU A/B MOLECULAR Stat LAB 07/20/18 13:36 Completed MOLECULAR GROUP A STREP Stat LAB 07/20/18 13:36 Completed RSV Stat LAB 07/20/18 13:36 Completed Dexamethasone 4 mg/ml Inj [Decadron 4 mg/ml Sdv] MEDS 07/20/18 14:07 Discontinued 8 mg IM ONCE STA Ipratropium/Albuterol Neb [Duoneb] MEDS 07/20/18 13:43 Discontinued 1 vial NEB ONCE STA CT CHEST W/O CONTRAST Stat RADS 07/20/18 13:21 Completed Medications Discontinued Medications Generic Name Dose Route Start Last Admin Trade Name Konstantin PRN Reason Stop Dose Admin Albuterol/Ipratropium 1 vial 07/20/18 13:43 Duoneb NEB 07/20/18 13:44 ONCE STA Dexamethasone Sodium Phosphate 8 mg 07/20/18 14:07 07/20/18 14:32 Decadron 4 Mg/Ml Sdv IM 07/20/18 14:08 8 mg ONCE STA Administration Vital Signs: Temp Pulse Resp BP Pulse Ox 07/20/18 12:32 98.4 F 58 L 20 110/72 97 Departure - Departure Time of Disposition: 14:30 Disposition: HOME SELF-CARE Discharge Problem: Viral syndrome, RSV (acute bronchiolitis due to respiratory syncytial virus) Instructions: Respiratory Syncytial Virus (ED), Viral Syndrome (ED) Condition: Good Pt referred to PMD for follow-up: Yes IPMP verified?: No Additional Instructions: Please call your Family Physician as soon as possible to schedule a follow-up appointment. STOP YOUR CELEBREX MEDICATION FOR 1 WEEK DO NOTAKE IT WITH STEROID MEDICATION Prescriptions: Amoxicillin 500 mg PO Q8HR #21 tablet Prednisone 10 mg PO DAILYWM #7 tablet Allergies/Adverse Reactions: Allergies celecoxib [From Celebrex] Allergy (Verified 07/20/18 12:44) swelling ciprofloxacin [From Cipro] Allergy (Verified 07/20/18 12:44) severe itching ciprofloxacin HCl [From Cipro] Allergy (Verified 07/20/18 12:44) severe itching diclofenac Allergy (Verified 07/20/18 12:44) Upset stomach pregabalin [From Lyrica] Allergy (Verified 07/20/18 12:44) slurred speach rofecoxib [From Vioxx] Allergy (Verified 07/20/18 12:44) high blood pressure rosuvastatin calcium [From Crestor] Allergy (Verified 07/20/18 12:44) bad leg aches tizanidine Allergy (Verified 07/20/18 12:44) tizanidine HCl [From Zanaflex] Allergy (Verified 07/20/18 12:44) dry mouth trazodone Adverse Reaction (Verified 07/20/18 12:44) zolpidem [From Ambien] Adverse Reaction (Verified 07/20/18 12:44) Home Medications: Ambulatory Orders Atorvastatin Calcium 40 mg PO BEDTIME 08/18/17 Baclofen 10 mg PO TID 08/18/17 Oxycodone HCl/Acetaminophen [Percocet 10-325 mg Tablet] 1 each PO PRN PRN Ropinirole HCl 0.25 mg PO TID 08/18/17 Verapamil HCl [Verapamil Sr] 240 mg PO BEDTIME 08/18/17 Memantine HCl/Donepezil HCl [Namzaric 28 mg-10 mg Capsule] 1 each PO BEDTIME 07/28 Calcium Carbonate/Vitamin D3 [Calcium 500 + Vit D 200 mg Tablet] 1 each PO BID 30 Days #60 tablet 05/12/18 Gabapentin [Neurontin] 100 mg PO TID 05/12/18 Aspirin [Aspir-Low] 81 mg PO DAILY 05/16/18 Amoxicillin 500 mg PO Q8HR #21 tablet 07/20/18 Prednisone 10 mg PO DAILYWM #7 tablet 07/20/18
== END 2018-07-20 14:56 | disposition home or self-care (01) ==
LOC: ED 12:31
DX: J21.0 Acute bronchiolitis due to respiratory syncytial virus (principal); B34.9 Viral infection, unspecified; Z79.899 Other long term (current) drug therapy
CPT/HCPCS: 36415; 80053; 82803; 85025; 87502; 87651; 87801; 93005; 93010; 94640; 96372; 99282